=== PATIENT | male | born 1960 | race Caucasian/White ===

== ENCOUNTER 2019-10-18 13:12 | Observation (INO) | payer BC ==
[2019-10-18] MEDS ORDERED: SODIUM CHLORIDE 0.9% 500 ML 500 ML IV STA (13:40)
--- NOTE | 2019-10-18 13:49 | ED ---
General Adult HPI - General Chief complaint: Syncope Stated complaint: syncope, elevated BP Time Seen by Provider: 10/18/19 13:28 Source: patient, RN notes reviewed, old records reviewed Mode of arrival: ambulatory Limitations: no limitations - History of Present Illness Initial comments: 59-year-old male presented for evaluation of near syncope. Patient has recent history of ascending aortic aneurysm. This was found on echocardiogram at an outside facility. He is currently following with cardiology, he's had a chest CT as well as echo and stress echo within the past several months. He was initiated on metoprolol 25 mg daily. This dose was increased yesterday to 50 mg. 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 He denies shock chest pain, no chest pain at all. He has a dull ache in his mid back which is been present throughout the day today. He began feeling lightheaded and felt he was going to passed out. He went to his hands and knees and laid on the floor without fully passing out. He denies nausea vomiting diarrhea. Denies abdominal pain. - Related Data Home Medications Medication Instructions Recorded Confirmed Aspirin EC [Ecotrin Low Dose] 81 mg PO DAILY 10/18/19 10/18/19 Atorvastatin [Lipitor] 20 mg PO AC-SUPPER 10/18/19 10/18/19 Metoprolol Succinate [Toprol XL] 25 mg PO AC-SUPPER 10/18/19 10/18/19 Allergies Allergy/AdvReac Type Severity Reaction Status Date / Time No Known Allergies Allergy Verified 10/18/19 14:39 Review of Systems ROS Statement: Those systems with pertinent positive or pertinent negative responses have been documented in the HPI. ROS Other: All systems not noted in ROS Statement are negative. Past Medical History Past Medical History: Hyperlipidemia, Hypertension, Rheumatoid Arthritis (RA) Additional Past Medical History / Comment(s): eye disorder- possible nerve damage, aaa Past Surgical History: No Surgical Hx Reported Additional Past Surgical History / Comment(s): turp Past Psychological History: No Psychological Hx Reported Smoking Status: Never smoker Past Alcohol Use History: None Reported Past Drug Use History: None Reported General Exam Limitations: no limitations General appearance: alert, in no apparent distress Head exam: Present: atraumatic, normocephalic Eye exam: Present: normal appearance, PERRL ENT exam: Present: normal exam Neck exam: Present: normal inspection, tenderness Respiratory exam: Present: normal lung sounds bilaterally. Absent: respiratory distress, wheezes Cardiovascular Exam: Present: regular rate, normal rhythm GI/Abdominal exam: Present: soft. Absent: distended, tenderness Extremities exam: Present: normal inspection, normal capillary refill, other (Bilateral pedal pulses 2+ and symmetric). Absent: pedal edema Neurological exam: Present: alert, oriented X3, CN II-XII intact. Absent: motor sensory deficit Psychiatric exam: Present: normal affect, normal mood Skin exam: Present: warm, dry, intact. Absent: cyanosis, diaphoretic Course Vital Signs 10/18/19 10/18/19 10/18/19 13:15 14:20 15:01 Temperature 98.7 F Pulse Rate 76 66 67 Respiratory 18 18 18 Rate Blood Pressure 188/108 151/101 144/93 O2 Sat by Pulse 97 96 96 Oximetry EKG Findings - EKG Comments: EKG Findings:: EKG: Normal sinus rhythm, T-wave inversion in the inferior leads, question ST segment depression in lead 2, no ST segment elevation rate of 76, WA interval 170, QRS duration 108, QTC 468. Medical Decision Making - Medical Decision Making 59-year-old male presenting for evaluation of near syncope, hypertension. No anterior chest pain, no sharp chest pain or abdominal pain. Laboratory testing reveals normal CBC, CMP shows hyperbilirubinemia 1.8, mild elevation in AST and ALT. No focal abdominal tenderness. Did perform an ultrasound in the emergency department which is negative for acute cholecystitis or bile duct obstruction. Chest x-ray performed negative for focal pneumonia or acute cardiac primary findings. Initial troponin is negative. I will place in observation for close monitoring, telemetry, serial cardiac enzymes, echo, cardiology consultation. Case is discussed with Dr. Tejeda he will admit. - Lab Data Result diagrams: 10/18/19 13:54 10/18/19 13:54 Lab Results 10/18/19 10/18/19 10/18/19 Range/Units 13:54 13:54 13:54 WBC 7.6 (3.8-10.6) k/uL RBC 4.99 (4.30-5.90) m/uL Hgb 15.5 (13.0-17.5) gm/dL Hct 45.3 (39.0-53.0) % MCV 90.8 (80.0-100.0) fL MCH 31.1 (25.0-35.0) pg MCHC 34.2 (31.0-37.0) g/dL RDW 11.8 (11.5-15.5) % Plt Count 159 (150-450) k/uL Neutrophils % 73 % Lymphocytes % 20 % Monocytes % 5 % Eosinophils % 1 % Basophils % 0 % Neutrophils # 5.5 (1.3-7.7) k/uL Lymphocytes # 1.5 (1.0-4.8) k/uL Monocytes # 0.4 (0-1.0) k/uL Eosinophils # 0.1 (0-0.7) k/uL Basophils # 0.0 (0-0.2) k/uL PT 10.2 (9.0-12.0) sec INR 1.0 (<1.2) APTT 23.9 (22.0-30.0) sec Sodium (137-145) mmol/L Potassium (3.5-5.1) mmol/L Chloride (98-107) mmol/L Carbon Dioxide (22-30) mmol/L Anion Gap mmol/L BUN (9-20) mg/dL Creatinine (0.66-1.25) mg/dL Est GFR (CKD-EPI)AfAm (>60 ml/min/1.73 sqM) Est GFR (CKD-EPI)NonAf (>60 ml/min/1.73 sqM) Glucose (74-99) mg/dL Calcium (8.4-10.2) mg/dL Magnesium (1.6-2.3) mg/dL Total Bilirubin (0.2-1.3) mg/dL AST (17-59) U/L ALT (4-49) U/L Alkaline Phosphatase (38-126) U/L Troponin I (0.000-0.034) ng/mL Total Protein (6.3-8.2) g/dL Albumin (3.5-5.0) g/dL Urine Color Light Yellow Urine Appearance Clear (Clear) Urine pH 6.5 (5.0-8.0) Ur Specific [place] 1.009 (1.001-1.035) Urine Protein Negative (Negative) Urine Glucose (UA) Negative (Negative) Urine Ketones Negative (Negative) Urine Blood Negative (Negative) Urine Nitrite Negative (Negative) Urine Bilirubin Negative (Negative) Urine Urobilinogen <2.0 (<2.0) mg/dL Ur Leukocyte Esterase Negative (Negative) 10/18/19 10/18/19 Range/Units 13:54 13:54 WBC (3.8-10.6) k/uL RBC (4.30-5.90) m/uL Hgb (13.0-17.5) gm/dL Hct (39.0-53.0) % MCV (80.0-100.0) fL MCH (25.0-35.0) pg MCHC (31.0-37.0) g/dL RDW (11.5-15.5) % Plt Count (150-450) k/uL Neutrophils % % Lymphocytes % % Monocytes % % Eosinophils % % Basophils % % Neutrophils # (1.3-7.7) k/uL Lymphocytes # (1.0-4.8) k/uL Monocytes # (0-1.0) k/uL Eosinophils # (0-0.7) k/uL Basophils # (0-0.2) k/uL PT (9.0-12.0) sec INR (<1.2) APTT (22.0-30.0) sec Sodium 139 (137-145) mmol/L Potassium 4.7 (3.5-5.1) mmol/L Chloride 107 (98-107) mmol/L Carbon Dioxide 26 (22-30) mmol/L Anion Gap 6 mmol/L BUN 16 (9-20) mg/dL Creatinine 0.77 (0.66-1.25) mg/dL Est GFR (CKD-EPI)AfAm >90 (>60 ml/min/1.73 sqM) Est GFR (CKD-EPI)NonAf >90 (>60 ml/min/1.73 sqM) Glucose 101 H (74-99) mg/dL Calcium 9.4 (8.4-10.2) mg/dL Magnesium 2.0 (1.6-2.3) mg/dL Total Bilirubin 1.8 H (0.2-1.3) mg/dL AST 160 H (17-59) U/L ALT 77 H (4-49) U/L Alkaline Phosphatase 75 (38-126) U/L Troponin I <0.012 (0.000-0.034) ng/mL Total Protein 8.2 (6.3-8.2) g/dL Albumin 4.7 (3.5-5.0) g/dL Urine Color Urine Appearance (Clear) Urine pH (5.0-8.0) Ur Specific [place] (1.001-1.035) Urine Protein (Negative) Urine Glucose (UA) (Negative) Urine Ketones (Negative) Urine Blood (Negative) Urine Nitrite (Negative) Urine Bilirubin (Negative) Urine Urobilinogen (<2.0) mg/dL Ur Leukocyte Esterase (Negative) Disposition Clinical Impression: Syncope Disposition: ADMITTED IP TO THIS [facility] Condition: Stable Is patient prescribed a controlled substance at d/c from ED?: No Referrals: Jorge Villanueva DO [Primary Care Provider] - 1-2 days Decision to Admit Reason: Admit from EC Decision Date: 10/18/19 Decision Time: 15:58
[2019-10-18 14:14] LABS: Basophils % (A) 0 %; Eosinophils # (A) 0.1 k/uL (0-0.7); Eosinophils % (A) 1 %; HCT 45.3 % (39.0-53.0); HGB 15.5 gm/dL (13.0-17.5); Lymphocytes # (A) 1.5 k/uL (1.0-4.8); Lymphocytes % (A) 20 %; MCH 31.1 pg (25.0-35.0); MCHC 34.2 g/dL (31.0-37.0); MCV 90.8 fL (80.0-100.0); Mean Platelet Volume 9.1; Monocytes # (A) 0.4 k/uL (0-1.0); Monocytes % (A) 5 %; Neutrophils # (A) 5.5 k/uL (1.3-7.7); Neutrophils % (A) 73 %; Platelet Count 159 k/uL (150-450); RBC 4.99 m/uL (4.30-5.90); RDW 11.8 % (11.5-15.5); WBC 7.6 k/uL (3.8-10.6)
[2019-10-18 14:17] LABS: Appearance,Urine Clear (Clear); Bilirubin,Urine Negative (Negative); Blood,Urine Negative (Negative); Color,Urine Light Yellow; Glucose,Urine (UA) Negative (Negative); Ketones,Urine Negative (Negative); Leukocyte Esterase,Urine Negative (Negative); Nitrite,Urine Negative (Negative); PH, Urine 6.5 (5.0-8.0); Protein,Urine Negative (Negative); Specific Gravity,Urine 1.009 (1.001-1.035); Urobilinogen,Urine <2.0 mg/dL (<2.0)
[2019-10-18 14:23] LABS: ALT 77 U/L (4-49); African American GFR (CKD) >90 (>60 ml/min/1.73 sqM); Anion Gap 6 mmol/L; Blood Urea Nitrogen 16 mg/dL (9-20); Calcium 9.4 mg/dL (8.4-10.2); Carbon Dioxide 26 mmol/L (22-30); Chloride 107 mmol/L (98-107); Glucose 101 mg/dL (74-99); Non-African American GFR(CKD) >90 (>60 ml/min/1.73 sqM); Sodium 139 mmol/L (137-145); Total Bilirubin 1.8 mg/dL (0.2-1.3)
[2019-10-18 14:24] LABS: Partial Thromboplastin Time 23.9 sec (22.0-30.0); Prothrombin Time 10.2 sec (9.0-12.0)
[2019-10-18 14:26] LABS: AST 160 U/L (17-59); Albumin 4.7 g/dL (3.5-5.0); Alkaline Phosphatase 75 U/L (38-126); Potassium 4.7 mmol/L (3.5-5.1); Total Protein 8.2 g/dL (6.3-8.2)
--- NOTE | 2019-10-18 15:09 | XR ---
EXAMINATION TYPE: XR chest 2V DATE OF EXAM: 10/18/2019 COMPARISON: NONE HISTORY: Hypertension TECHNIQUE: 2 views FINDINGS: Heart and mediastinum are normal. Lungs are clear. Diaphragm is normal. Bony thorax is inta ct. IMPRESSION: Normal chest
[2019-10-18] MEDS ORDERED: NALOXONE 0.4 MG/ML 1 ML VIAL IV PRN (15:45)
[2019-10-18] MEDS ORDERED: ACETAMINOPHEN TAB 325 MG TAB PO PRN (15:45)
--- NOTE | 2019-10-18 15:56 | US ---
EXAMINATION TYPE: US gallbladder DATE OF EXAM: 10/18/2019 COMPARISON: NONE CLINICAL HISTORY: Hyperbilirubinemia, transaminitis. Abnormal labs EXAM MEASUREMENTS: Liver Length: 13.6 cm Gallbladder Wall: 0.2 cm CBD: 0.2 cm Right Kidney: 10.1 x 4.9 x 4.8 cm PT not NPO Pancreas: Obscured by bowel gas Liver: Visualized portions appeared wnl Gallbladder: wnl Evidence for sonographic Sorenson's sign: No CBD: wnl Right Kidney: wnl IMPRESSION: No gallstones or dilated ducts. No focal liver defect.
[2019-10-18] MEDS ORDERED: PNEUMOCOCCAL VACC-PNEUMOVAX 23 25 MCG/0.5 ML VIAL IM ONE (16:55)
[2019-10-18] MEDS ORDERED: METOPROLOL SUCCINATE (ER) 25 MG TAB.ER.24H PO SCH (17:30)
[2019-10-18] MEDS ORDERED: ATORVASTATIN 20 MG TAB PO SCH (17:30)
[2019-10-18] MEDS ORDERED: RX INFO: IV CONTRAST WAS GIVEN 1 EACH MISC MISCELLANE PRN (21:14)
--- NOTE | 2019-10-18 22:28 | CT ---
EXAMINATION TYPE: CT angio thor/abd pel aorta DATE OF EXAM: 10/18/2019 COMPARISON: None HISTORY: Mid back pain and lightheaded. History of AAA. CT DLP: 1692.3 mGycm Automated exposure control for dose reduction was used. CONTRAST: Performed without and with IV Contrast, patient injected with 100ml mL of Isovue 370. Images were obtained from the thoracic inlet to the floor the pelvis without and with IV contrast. Th ere are 3-D post processed images. FINDINGS: The lungs are clear of infiltrate. There is no pleural effusion. There is no mediastinal adenopathy. There are no hilar masses. There is aneurysm of the ascending aorta that measures 4.4 cm. There is no dissection. The heart is top normal in size. There is no pericardial effusion. There is no evidence of a pulmonary mass. There is 1 cm cyst superior right lobe of the liver. Gallbladder appears normal. Spleen stomach pancr eas appear intact. There is no adrenal mass. Kidneys show satisfactory contrast opacification. There is no hydronephrosi s. Ureters are not dilated. There is no retroperitoneal adenopathy. Bladder distends smoothly. Prosta te is mildly enlarged and measures 4.7 cm. There is no inguinal hernia. There is no free fluid in the pelvis. There is no mesenteric edema. There is no ascites or free air. Noncontrast images show no re nal calculus. There is no sign of thickened appendix. There is no ascites or free air. There is no evidence of a bowel obstruction. Abdominal aorta has normal size and contour. There is arterial flow in the celiac artery and superior mesenteric artery. There is arterial flow in both renal arteries. There is bilateral arterial flow i n the iliac and femoral arteries. There is no sign of hemodynamic stenosis. There is no evidence of a rterial abdominal aneurysm or dissection. There is normal contrast opacification of the pulmonary arteries. Thoracic and lumbar vertebra appear intact. There is vacuum disc from L3 to S1. The bony pelvis is in tact. IMPRESSION: There is mild aneurysm of the ascending aorta. No evidence of arterial dissection. No evidence of pulmonary embolism. No acute abnormality of the chest abdomen pelvis.
--- NOTE | 2019-10-18 23:22 | P.HPIM ---
History of Present Illness H&P Date: 10/18/19 Chief Complaint: Heart racing History of presenting complaint: This is a pleasant 59-year-old patient of Dr. barreto. Chronic stable medical conditions include hyperlipidemia, rheumatoid arthritis, ascending aortic aneurysm 4.5 cm being followed by Dr. Dee. 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 Today was sitting having lunch and went to get some regular [place] the factors heart racing for about 5-7 minutes then he felt in his, passive and lower himself to the floor. No further symptoms since then. He has had a slight dull pain between the scapula. And came in for the same. Patient's blood pressure has been running a bit on the higher side and high 140s systolic and 100 diastolic. Otherwise patient rather active and works out. Review of systems: GEN.: None EYES: None HEENT: None NECK: None RESPIRATORY: None CARDIOVASCULAR: As above GASTROINTESTINAL: None GENITOURINARY: None MUSCULOSKELETAL: None LYMPHATICS: None HEMATOLOGICAL: None PSYCHIATRY: None NEUROLOGICAL: No focal neurological symptoms Past medical history to include: Hypertension, hyperlipidemia, rheumatoid arthritis, ascending aortic aneurysm 4.5 cm being followed, pulmonary and peripheral loss of vision in the right eye Social history: Does not smoke. Alcohol. . 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 Physical examination: VITAL SIGNS: 98.7, 76, 18, 150 /07/29/1995 percent on room air GENERAL: BMI 27.4, sitting up in a chair, comfortable. EYES: Pupils equal. Conjunctiva normal. HEENT: External appearance of nose and ears normal, oral cavity grossly normal. NECK: JVD not raised; masses not palpable. HEART: First and second heart sounds are normal; no edema. Equal pulses volume in both the arms LUNGS: Respiratory rate normal; clear to auscultation. ABDOMEN: Soft, nontender, liver spleen not palpable, no masses palpable. PSYCH: Alert and oriented x3; mood and affect normal. NEUROLOGICAL: Cranial nerves grossly intact; no facial asymmetry, power and sensation grossly intact. LYMPHATICS: No lymph nodes palpable in the axilla and neck INVESTIGATIONS, reviewed in the clinical context: White count 7.6 hemoglobin 15.5. Weight is 159 potassium 4.7 and creatinine 0.77 Potassium 4.7 total bilirubin 1.8 AST 160 ALT 77 Troponin I 2 negative EKG tracing personally reviewed by me-ST segment depression in inferolateral leads Abdominal ultrasound-gallbladder and liver unremarkable Chest x-ray film personally reviewed by me-possible cardiomegaly Assessment: -This is a patient with blood pressure runs on the higher side presented with an episode of heart racing for about 5-7 minutes then nearly passed out with presyncope. Had some discomfort in the back area. EKG does show ST segment fresh in inferolateral leads. With negative troponin. 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 It came back negative for aortic dissection. We'll add lisinopril hydrochlorothiazide 1 tablet twice a day for blood pressure. 2-D echocardiogram. Patient will need a stress was given EKG changes. Care was discussed with the patient questions were answered. Cardiology being consulted. Past Medical History Past Medical History: Hyperlipidemia, Hypertension, Rheumatoid Arthritis (RA) Additional Past Medical History / Comment(s): eye disorder- possible nerve damage, aaa History of Any Multi-Drug Resistant Organisms: None Reported Past Surgical History: No Surgical Hx Reported Additional Past Surgical History / Comment(s): turp Past Anesthesia/Blood Transfusion Reactions: No Reported Reaction Past Psychological History: No Psychological Hx Reported Smoking Status: Never smoker Past Alcohol Use History: None Reported Past Drug Use History: None Reported - Past Family History Brother(s) Family Medical History: Coronary Artery Disease (CAD) Medications and Allergies Home Medications Medication Instructions Recorded Confirmed Type Aspirin EC [Ecotrin Low Dose] 81 mg PO DAILY 10/18/19 10/18/19 History Atorvastatin [Lipitor] 20 mg PO AC-SUPPER 10/18/19 10/18/19 History Metoprolol Succinate [Toprol XL] 25 mg PO AC-SUPPER 10/18/19 10/18/19 History Allergies Allergy/AdvReac Type Severity Reaction Status Date / Time No Known Allergies Allergy Verified 10/18/19 14:39 Physical Exam Vitals: Vital Signs Temp Pulse Pulse Resp BP BP Pulse Ox 10/18/19 20:35 98.4 F 61 16 157/89 98 10/18/19 17:01 98.5 F 69 16 156/110 98 03/22/20 16:39 98.5 F 69 16 156/110 98 10/18/19 16:03 61 18 140/89 97 10/18/19 15:01 67 18 144/93 96 10/18/19 14:20 66 18 151/101 96 10/18/19 13:15 98.7 F 76 18 188/108 97 Intake and Output 10/18/19 10/18/19 10/19/19 14:59 22:59 06:59 Intake Total 480 Balance 480 Intake: Oral 480 Other: Voiding Method Toilet Weight 81.647 kg 81.647 kg Results CBC & Chem 7: 10/18/19 13:54 10/18/19 13:54 Labs: Abnormal Lab Results - Last 24 Hours (Table) 10/18/19 Range/Units 13:54 Glucose 101 H (74-99) mg/dL Total Bilirubin 1.8 H (0.2-1.3) mg/dL AST 160 H (17-59) U/L ALT 77 H (4-49) U/L Thrombosis Risk Factor Assmnt - Choose All That Apply Each Factor Represents 1 point: Age 41-60 years Thrombosis Risk Factor Assessment Total Risk Factor Score: 1 Thrombosis Risk Factor Assessment Level: Low Risk
[2019-10-19] MEDS: LISINOPRIL-HCTZ 10-12.5 MG 1 EACH TAB PO SCH ×2 (01:04→08:59)
[2019-10-19] MEDS ORDERED: ASPIRIN 81 MG PO SCH (09:00)
[2019-10-19 09:19] VITALS: RESP 17; TEMP 98
--- NOTE | 2019-10-19 10:33 | CONS ---
DEION Oliveros is a 59-year-old gentleman with history of hypertension and dyslipidemia who is admitted to the hospital having had an episode of syncope. Recently, his brother had been diagnosed with coronary artery disease and he underwent extensive workup. The patient had a stress test and echocardiogram in the outpatient setting, which I am told were both unremarkable. He comes in having had an episode of syncope at home. He states that this happened while he was standing sudden. No focal neurological deficits. No bladder or bowel incontinence. No seizures. Since being admitted he has done well. EKG did not reveal any ischemic changes. He did not have significant tachy or bradyarrhythmias. Troponins have been negative. An echocardiogram was done today and results are pending at this time. The patient had a CT scan of the chest that was negative for pulmonary embolism and his aorta appears enlarged measuring 4.4 cm. The patient's syncope could be vasovagal in origin. I certainly would like to rule out any bradycardia or tachyarrhythmias and I will arrange for an event monitor on discharge. I am going to review the outpatient records and if necessary, repeat a stress test on him. The patient's blood pressure is poorly controlled. The patient was on metoprolol coming in and Zestoretic had been added. PAST MEDICAL HISTORY: Significant for hypertension, dyslipidemia. MEDICATIONS: Medications include aspirin, atorvastatin, and metoprolol. ALLERGIES: There are no known drug allergies. FAMILY HISTORY: Negative for premature coronary artery disease. SOCIAL HISTORY: Negative for current smoking, EtOH abuse, or drug abuse. REVIEW OF SYSTEMS: HEENT is unremarkable. CARDIAC: As described above. RESPIRATORY: Negative. GI: Negative. GENITOURINARY: Negative. ALLERGY/IMMUNOLOGY: Negative. SKIN: Negative. MUSCULOSKELETAL: Negative. ENDOCRINE: Negative. HEMATOLOGY: Negative. DERM: Negative. CONSTITUTIONAL: Negative. ONCOLOGICAL: Negative. KST OPERATOR: Significant for syncope. PHYSICAL EXAMINATION: On exam comfortable at rest. Afebrile. Heart rate is 60 beats per minute. Blood pressure is 160/104. Respiratory rate is 18. Patient does not have any orthostatic changes. There is no jugular venous distention. Carotid upstroke is normal. There is no bruit. Chest exam reveals good air entry bilaterally. Heart exam reveals first and second heart sounds. No gallop. No murmur. No rub. Abdomen is soft, nontender. Exam of extremities did not reveal any edema. Peripheral pulses are felt. LABS: Labs show a hemoglobin of 15.5, platelet count is 159. Creatinine is 0.7. Potassium is 4.7. AST, ALT are elevated as is the bilirubin. ASSESSMENT: 1. Syncope, rule out cardiac causes. 2. Uncontrolled hypertension. 3. Dyslipidemia. 4. Ascending aortic aneurysm. PLAN: I am going to hold the Lipitor at this time given the elevated liver enzymes. We will review outpatient records. If they are indeed benign, he can be discharged home and arrange for an outpatient followup through my office. The patient does not have any dissection or pulmonary embolism. The ascending aortic aneurysm needs to be monitored, which we will do in the outpatient setting. MMODL / IJN: [id number] /
--- NOTE | 2019-10-19 11:10 | ECHOF ---
Referral Reason:syncope MEASUREMENTS -------- HEIGHT: 172.7 cm WEIGHT: 83.0 kg BP: 160/91 RVIDd: 3.1 cm (< 3.3) IVSd: 1.5 cm (0.6 - 1.1) LVIDd: 4.5 cm (3.9 - 5.3) LVPWd: 1.5 cm (0.6 - 1.1) IVSs: 1.9 cm LVIDs: 3.6 cm LVPWs: 2.2 cm LA Diam: 4.1 cm (2.7 - 3.8) LAESV Index (A-L): 26.94 ml/m Ao Diam: 4.3 cm (2.0 - 3.7) AV Cusp: 2.6 cm (1.5 - 2.6) MV EXCURSION: 18.048 mm (> 18.000) MV EF SLOPE: 75 mm/s (70 - 150) EPSS: 0.6 cm MV E Héctor: 0.52 m/s MV DecT: 314 ms MV A Héctor: 0.76 m/s MV E/A Ratio: 0.69 AR PHT: 628 ms RAP: 5.00 mmHg RVSP: 18.87 mmHg FINDINGS -------- Resting bradycardia (HR<60bpm). This was a technically good study. The left ventricular size is normal. There is mild concentric left ventricular hypertrophy. Overa ll left ventricular systolic function is low-normal with, an EF between 50 - 55 %. The right ventricle is normal in size. Normal LA size by volume 22+/-6 ml/m2. The right atrium is normal in size. Interatrial and interventricular septum intact. There is mild aortic valve sclerosis. There is mild aortic regurgitation. The mitral valve leaflets are mildly thickened. There is trace mitral regurgitation. Mild tricuspid regurgitation present. Right ventricular systolic pressure is normal at < 35 mmHg. Trace/mild (physiologic) pulmonic regurgitation. The aortic root is dilated measuring 4.3cm. Normal inferior vena cava with normal inspiratory collapse consistent with estimated right atrial pre ssure of 5 mmHg. There is no pericardial effusion. CONCLUSIONS -------- 1. Resting bradycardia (HR<60bpm). 2. This was a technically good study. 3. The left ventricular size is normal. 4. There is mild concentric left ventricular hypertrophy. 5. Overall left ventricular systolic function is low-normal with, an EF between 50 - 55 %. 6. The right ventricle is normal in size. 7. Normal LA size by volume 22+/-6 ml/m2. 8. The right atrium is normal in size. 9. Interatrial and interventricular septum intact. 10. There is mild aortic valve sclerosis. 11. There is mild aortic regurgitation. 12. The mitral valve leaflets are mildly thickened. 13. There is trace mitral regurgitation. 14. Mild tricuspid regurgitation present. 15. Right ventricular systolic pressure is normal at < 35 mmHg. 16. Trace/mild (physiologic) pulmonic regurgitation. 17. The aortic root is dilated measuring 4.3cm. 18. Normal inferior vena cava with normal inspiratory collapse consistent with estimated right atrial pressure of 5 mmHg. 19. There is no pericardial effusion. QUALITY HEAD: Kanika Correa RDCS
[2019-10-19 12:15] VITALS: BP 155/89; PULSE 62
--- NOTE | 2019-10-19 22:34 | P.DS ---
Providers Date of admission: 10/18/19 15:45 Expected date of discharge: 10/19/19 Attending physician: Dami Tejeda Consults: 10/18/19 15:46 Consult Physician Routine Consulting Provider: Baldo Briscoe Consult Reason/Comments: syncope Do you want consulting provider notified?: Yes Primary care physician: Jorge Villanueva [facility] Course: Chief Complaint: Heart racing History of presenting complaint: This is a pleasant 59-year-old patient of Dr. villanueva. Chronic stable medical conditions include hyperlipidemia, rheumatoid arthritis, ascending aortic aneurysm 4.5 cm being followed by Dr. Dee. 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 Today was sitting having lunch and went to get some regular Polish the factors heart racing for about 5-7 minutes then he felt in his, passive and lower himself to the floor. No further symptoms since then. He has had a slight dull pain between the scapula. And came in for the same. Patient's blood pressure has been running a bit on the higher side and high 140s systolic and 100 diastolic. Otherwise patient rather active and works out. Computed tomography scan of the chest with contrast was done to rule out aortic dissection. 2-D echo was unremarkable. Patient will [employer] her 30 day event monitor from [facility]. Lisinopril/hydrochlorothiazide was added. Care was discussed with the patient. Patient otherwise feeling well-today Consultation: Dr. Allen Xavier from cardiology Physical examination: VITAL SIGNS: 98, 59, 17, 155/89, 96% on room air GENERAL: BMI 27.4, sitting up in a chair, comfortable. EYES: Pupils equal. Conjunctiva normal. HEENT: External appearance of nose and ears normal, oral cavity grossly normal. NECK: JVD not raised; masses not palpable. HEART: First and second heart sounds are normal; no edema. Equal pulses volume in both the arms LUNGS: Respiratory rate normal; clear to auscultation. ABDOMEN: Soft, nontender, liver spleen not palpable, no masses palpable. PSYCH: Alert and oriented x3; mood and affect normal. INVESTIGATIONS, reviewed in the clinical context: White count 7.6 hemoglobin 15.5. Weight is 159 potassium 4.7 and creatinine 0.77 Potassium 4.7 total bilirubin 1.8 AST 160 ALT 77 Troponin I 2 negative EKG tracing personally reviewed by me-ST segment depression in inferolateral leads Abdominal ultrasound-gallbladder and liver unremarkable Chest x-ray film personally reviewed by me-possible cardiomegaly Computed tomography scan chest with contrast-negative for dissection 2-D echocardiogram EF 50-55%. Aortic root dilated at 4.3 cm Assessment: -Paroxysmal arrhythmia. Back in sinus rhythm. For out patient event monitor -Essential hypertension uncontrolled -Hyperlipidemia -Ascending aortic aneurysm 4. 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 Disposition: Home Patient Condition at Discharge: Stable Plan - Discharge Summary Discharge Rx Participant: No New Discharge Prescriptions: New Lisinopril-Hctz 10-12.5 mg [Zestoretic 10-12.5] 1 each PO BID #60 tab Continue Metoprolol Succinate [Toprol XL] 25 mg PO AC-SUPPER Aspirin EC [Ecotrin Low Dose] 81 mg PO DAILY Discontinued Atorvastatin [Lipitor] 20 mg PO AC-SUPPER Discharge Medication List Aspirin EC [Ecotrin Low Dose] 81 mg PO DAILY 10/18/19 [History] Metoprolol Succinate [Toprol XL] 25 mg PO AC-SUPPER 10/18/19 [History] Lisinopril-Hctz 10-12.5 mg [Zestoretic 10-12.5] 1 each PO BID #60 tab 10/19/19 [Rx] Follow up Appointment(s)/Referral(s): Jorge Villanueva DO [Primary Care Provider] - 10 Days Bennett Hood MD [STAFF PHYSICIAN] - 10/27/19 1:00 pm (office will mail event monitor to you) Patient Instructions/Handouts: Syncope (DC) Activity/Diet/Wound Care/Special Instructions: 30 day event monitor on discharge. [facility] will mail you your event monitor cmp - 7 days Discharge Disposition: HOME SELF-CARE
== END 2019-10-19 16:30 | disposition home or self-care (01) ==
LOC: EC 13:12 → 3SCARD 15:45 → 4SSUR 20:49 → 3SCARD 20:49
PROVIDERS: ADMIT Hospitalist; ATTEND Hospitalist
DX: R55 Syncope and collapse (principal); M54.6 Pain in thoracic spine; I49.9 Cardiac arrhythmia, unspecified; I10 Essential (primary) hypertension; E78.5 Hyperlipidemia, unspecified; I71.2 Thoracic aortic aneurysm, without rupture; M06.9 Rheumatoid arthritis, unspecified; H57.9 Unspecified disorder of eye and adnexa; R74.8 Abnormal levels of other serum enzymes; H54.61 Unqualified visual loss, right eye, normal vision left eye; R17 Unspecified jaundice; Z23 Encounter for immunization; Z79.899 Other long term (current) drug therapy; Z79.82 Long term (current) use of aspirin; Z82.49 Family history of ischemic heart disease and other diseases of the circulatory system
CPT/HCPCS: 99285; 36415; 93005; 93306; 80053; 83735; 84484 ×2; 85025; 85610; 85730; 81003; 71046; 76705; 71275; 74174; 90732; G0378 ×2; G0009; Q9967

== ENCOUNTER → 2023-12-16 | Outpatient (CLI) | payer BC ==
--- NOTE | 2023-12-17 09:05 | CT ---
EXAMINATION TYPE: CT angio chest CT DLP: 607 mGycm, Automated exposure control for dose reduction was used. DATE OF EXAM: 12/16/2023 4:09 PM COMPARISON: 10/18/2019 CLINICAL INDICATION:Male, 63 years old with history of I71.20 THORACIC AORTIC ANEURYSM, WITHOUT RUPTU RE,; aneurysm TECHNIQUE/CONTRAST: CTA scan of the thorax is performed without and with IV Contrast, patient injected with 100 mL of Iso oneal 370, MIP images are created and reviewed these are created on a separate workstation.. FINDINGS: Lungs/Pleura: No evidence of focal consolidation, pleural effusion or pneumothorax. Airway: Large airways are patent. Heart: Heart is within normal limits for size. Vasculature: Ectasia of the thoracic aorta up to 45 mm. No evidence for intramural hematoma on noncon trast imaging. No evidence of intimal flap to suggest dissection. No aneurysm identified. Scattered a therosclerotic disease. No filling defect within the pulmonary arterial vasculature. Ascending thora cic aorta is within normal limits for size. No evidence for upper abdominal aortic aneurysm. Mediastinum: No gross evidence of adenopathy. Musculoskeletal: No acute osseous abnormalities Soft Tissues/lymph nodes: Unremarkable. Lower neck: No significant findings. Upper Abdomen: Scattered colonic diverticula IMPRESSION: Ascending thoracic aorta ectasia up to 45 mm. No evidence for aortic aneurysm. No evidence for occlus ion. No evidence for pulmonary embolus.
== END | disposition home or self-care (01) ==
LOC: RADCTMAIN 15:28
PROVIDERS: ATTEND Internal Medicine Cardiovascular Disease
DX: I77.810 Thoracic aortic ectasia (principal)
CPT/HCPCS: 71275; Q9967